=== PATIENT | female | born 1995 | race Caucasian/White ===

== ENCOUNTER 2024-01-07 13:20 | Outpatient (CLI) | payer MEDICAID, OTHER | END 2024-01-07 23:59 | disposition home or self-care (01) | LOC: US 13:20 | PROVIDERS: ATTEND Family Medicine | DX: E04.2 Nontoxic multinodular goiter (principal); R89.1 Abnormal level of hormones in specimens from other organs, systems and tissues | CPT/HCPCS: 76536 ==